=== PATIENT | male | born 1995 | race African-American/Black ===

== ENCOUNTER 2020-09-10 21:09 | Inpatient (IN) ==
[2020-09-10] MEDS ORDERED: Isovue-370 500 ML BOTTLE IVP ONE (21:28)
[2020-09-10 21:44] LABS: Basophils % 0.5 %; Eosinophils % 0.3 %; Hematocrit 42.9 % (37.5-50.1); Hemoglobin 14.3 g/dL (12.9-16.9); Immature Granulocytes % 0.3 % (0-4); Lymphocytes % 17.1 %; Mean Corpuscular HGB Conc 33.3 g/dL (31.6-35.5); Mean Corpuscular Hemoglobin 27.8 pg (28.0-33.3); Mean Corpuscular Volume 83.3 fL (83.0-100.0); Mean Platelet Volume 11.2 fL (9.4-12.4); Monocytes # 0.6 K/mcL (0.0-1.3); Monocytes % 9.4 %; Neutrophils # 4.4 K/mcL (1.6-8.9); Platelet Count 208 K/mcL (140-400); Red Blood Count 5.15 M/mcL (4.19-5.50); Red Cell Distribution Width 12.3 % (11.5-14.5); Segmented Neutrophils % 72.4 %
[2020-09-10 21:50] LABS: Estimated Average Glucose 123 mg/dl; Hemoglobin A1C 5.9 %
[2020-09-10 22:19] LABS: Acetaminophen < 10 mcg/mL (10-20); Chol/HDL Ratio 4.5 (0-4.9); Cholesterol 167 mg/dL (< 200); Ethanol < 10 mg/dL (Less than 10); HDL Cholesterol 37 mg/dL (40-59); LDL Cholesterol,Calculated 116 mg/dL (< 100); Salicylate < 2.5 mg/dL (15.0-30.0); Triglycerides 68 mg/dL (< 150)
[2020-09-10 22:56] LABS: BUN/Creatinine Ratio 10 (6-26); Blood Urea Nitrogen 12 mg/dL (6-20); Calcium 9.5 mg/dL (8.6-10.3); Carbon Dioxide 26 mEq/L (23-29); Chloride 106 mEq/L (98-107); Glucose 113 mg/dL (70-105); Osmolality,Calculated 289 (280-300); Potassium 3.8 mEq/L (3.5-5.1); Sodium 139 mEq/L (136-145); eGFR For African Americans > 60 (> 60); eGFR For Non-African Americans > 60 (> 60)
[2020-09-10] MEDS ORDERED: *HR* LORazepam 1 MG TABLET PO ONE (23:01)
[2020-09-10] MEDS ORDERED: 0.9 % Sodium Chloride 1,000 ML ONE (23:20)
[2020-09-10] MEDS ORDERED: 0.9 % Sodium Chloride 1,000 ML IVC ONE (23:23)
[2020-09-11 00:31] LABS: Bilirubin,Urine Negative (Negative); Blood,Urine Negative (Negative); Clarity,Urine Clear (Clear); Color,Urine Light-Yellow (Yellow); Glucose,Urine (UA) Normal (Normal); Ketones,Urine Negative (Negative); Leukocyte Esterase,Urine Negative (Negative); Nitrite,Urine Negative (Negative); PH,Urine 7.5 pH Units (5.0-8.0); Protein,Urine Trace mg/dL (Neg-Trace); Specific Gravity,Urine > 1.030 (1.010-1.025); Urobilinogen,Urine Normal (Normal)
[2020-09-11 00:39] LABS: Amphetamine Screen,Urine Negative ng/mL (Cutoff=1000); Barbiturate Screen,Urine Negative ng/mL (Cutoff=200); Benzodiazepines Screen,Urine Negative ng/mL (Cutoff=200); Cannabinoid Screen,Urine Positive ng/mL (Cutoff = 50); Cocaine Screen,Urine Negative ng/mL (Cutoff= 300); Opiate Screen,Urine Negative ng/mL (Cutoff=300); Phencyclidine Screen,Urine Negative ng/mL (Cutoff=25)
[2020-09-11] MEDS ORDERED: Ibuprofen 400 MG TABLET PO PRN (02:56)
[2020-09-11] MEDS ORDERED: haloperidoL 5 MG TABLET PO PRN (10:16)
[2020-09-11] MEDS ORDERED: Haloperidol Lactate 5 MG/ML VIAL IM PRN (10:16)
[2020-09-11] MEDS ORDERED: *HR* LORazepam 2 MG/ML VIAL IM PRN (10:16)
[2020-09-11] MEDS ORDERED: Mag Hydrox/Al Hydrox/Simeth 30 ML UDC PO PRN (10:16)
[2020-09-11] MEDS ORDERED: MOM Conc 10 ML UD.LIQ PO PRN (10:16)
[2020-09-11] MEDS: traZODone 50 MG TABLET PO PRN (20:54)
[2020-09-11] MEDS: Nicotine 2 MG GUM BC PRN (20:54)
[2020-09-11] MEDS: ARIPiprazole 5 MG TABLET PO SCH (20:54)
[2020-09-11] MEDS: hydrOXYzine pamoate 25 MG CAPSULE PO PRN (20:54)
[2020-09-12] MEDS: hydrOXYzine pamoate 25 MG CAPSULE PO PRN (15:17)
[2020-09-12] MEDS: ARIPiprazole 5 MG TABLET PO SCH (20:50)
[2020-09-12] MEDS: Nicotine 2 MG GUM BC PRN (20:50)
[2020-09-12] MEDS: traZODone 50 MG TABLET PO PRN (22:06)
[2020-09-13] MEDS: hydrOXYzine pamoate 25 MG CAPSULE PO PRN ×2 (09:17→13:00)
[2020-09-13] MEDS: hydrOXYzine pamoate 25 MG CAPSULE PO SCH ×3 (12:56→20:58)
[2020-09-13] MEDS: Nicotine 2 MG GUM BC PRN (18:05)
[2020-09-13] MEDS: ARIPiprazole 5 MG TABLET PO SCH (20:58)
[2020-09-13] MEDS: traZODone 50 MG TABLET PO PRN (22:09)
[2020-09-14] MEDS: hydrOXYzine pamoate 25 MG CAPSULE PO SCH ×3 (09:02→21:13)
[2020-09-14] MEDS: Nicotine 2 MG GUM BC PRN (19:11)
[2020-09-14] MEDS: ARIPiprazole 5 MG TABLET PO SCH (21:13)
[2020-09-14] MEDS: rOPINIRole 1 MG TABLET PO SCH (21:13)
[2020-09-15] MEDS: BuPROPion XL (24 HR) 150 MG TABLET PO SCH (08:54)
[2020-09-15] MEDS: hydrOXYzine pamoate 25 MG CAPSULE PO SCH ×3 (08:55→20:34)
[2020-09-15] MEDS: rOPINIRole 1 MG TABLET PO SCH (20:34)
[2020-09-15] MEDS: ARIPiprazole 5 MG TABLET PO SCH (20:34)
[2020-09-15] MEDS: Nicotine 2 MG GUM BC PRN (20:34)
[2020-09-16] MEDS: hydrOXYzine pamoate 25 MG CAPSULE PO SCH (09:03)
[2020-09-16] MEDS: BuPROPion XL (24 HR) 150 MG TABLET PO SCH (09:03)
[2020-09-16 09:59] VITALS: BP 140/80
[2020-09-16] MEDS ORDERED: hydrOXYzine pamoate 25 MG CAPSULE PO SCH (15:00)
== END 2020-09-16 11:15 | disposition home or self-care (01) | DRG 751 ==
LOC: EMEROOARM 21:09 → 1ANU 09-11 02:54
PROVIDERS: ADMIT Psychiatry & Neurology Psychiatry; ATTEND Psychiatry & Neurology Psychiatry